=== PATIENT | male | born 1955 | race Caucasian/White ===

== ENCOUNTER → 2018-11-20 | Outpatient (CLI) | payer OTHER ==
[~2018-11-20] MED LIST: GADOBUTROL 10 ML VIAL IVP ONE
== END ==
LOC: FIMAGING 09:28
PROVIDERS: ATTEND Physician Assistant Medical
DX: E78.5 Hyperlipidemia, unspecified (principal); R41.3 Other amnesia; R63.4 Abnormal weight loss; I63.9 Cerebral infarction, unspecified
CPT/HCPCS: A9585

== ENCOUNTER → 2018-11-27 | Outpatient (CLI) | payer OTHER ==
[~2018-11-27] MED LIST changes: -GADOBUTROL 10 ML VIAL IVP ONE; +IOPAMIDOL (ISOVUE 370) 100 ML BTL IV ONE
== END ==
LOC: FIMAGING 12:12
PROVIDERS: ATTEND Physician Assistant Medical
DX: I65.23 Occlusion and stenosis of bilateral carotid arteries (principal); I67.2 Cerebral atherosclerosis; I70.8 Atherosclerosis of other arteries
CPT/HCPCS: Q9967

== ENCOUNTER → 2019-01-04 | Outpatient (CLI) | payer OTHER | LOC: EMCIMAGING 10:19 | PROVIDERS: ATTEND Surgery | DX: I70.8 Atherosclerosis of other arteries (principal); I70.213 Atherosclerosis of native arteries of extremities with intermittent claudication, bilateral legs; R91.1 Solitary pulmonary nodule ==

== ENCOUNTER 2019-02-02 09:24 | Inpatient (IN) | payer OTHER ==
[2019-02-02] MEDS ORDERED: diphenhydrAMINE 25 MG CAP PO ONE ×2 (09:27→09:57)
[2019-02-02] MEDS ORDERED: ASPIRIN EC 325 MG TAB PO ONE ×2 (09:27→09:58)
[2019-02-02] MEDS ORDERED: NS 1,000 ML IV ONE (09:27)
[2019-02-02] MEDS ORDERED: FAMOTIDINE 20 MG TAB PO ONE (09:27)
[2019-02-02] MEDS ORDERED: DIAZEPAM 5 MG TAB PO ONE (09:27)
[2019-02-02] MEDS ORDERED: LIDOCAINE 1% 300 MG/30 ML SDV ONE (09:54)
[2019-02-02] MEDS ORDERED: MIDAZOLAM 2 MG/2 ML VIAL ONE (09:55)
[2019-02-02] MEDS ORDERED: fentaNYL 100 MCG/2 ML INJ ONE (09:55)
[2019-02-02] MEDS ORDERED: IOPAMIDOL (ISOVUE-370) 150 ML BTL IV ONE (09:55)
[2019-02-02] MEDS ORDERED: FAMOTIDINE 20 MG TAB ONE (09:58)
[2019-02-02] MEDS ORDERED: DIAZEPAM 5 MG TAB ONE (09:59)
[2019-02-02 10:05] LABS: PLATELET COUNT 166 10^3/uL (150-400)
--- NOTE | 2019-02-02 10:08 | PDHPUP ---
History & Physical Update H&P update statement: This history and physical update is based on an assessment of the patient which was completed after admission or registration (within 24 hours), but prior to the surgery/procedure. H&P update: H&P reviewed & patient examined, no change in patient's condition since H&P completed
--- NOTE | 2019-02-02 10:09 | PDPROPOC ---
Sedation Plan of Care Sedation Plan of Care: mental status noted, patient educated of risks, benefits , alternatives, patient can tolerate sedation ASA Classification: ASA 2 Planned drugs: fentanyl, midazolam Mallampati Score: Class 2 Mallampati Reference Image: Patient passed 3-3-2 rule?: Yes
[2019-02-02 10:14] LABS: INR 0.99 (0.83-1.16); PROTIME(PATIENT) 12.7 SEC (12.0-15.0)
[2019-02-02] MEDS ORDERED: CLOPIDOGREL BISULFATE 75 MG TAB ONE (10:14)
[2019-02-02] MEDS ORDERED: CLOPIDOGREL BISULFATE 75 MG TAB PO ONE (10:30)
[2019-02-02] MEDS ORDERED: ONDANSETRON 4 MG/2 ML VIAL IVP PRN (11:27)
[2019-02-02] MEDS ORDERED: ATROPINE SULFATE 1 MG/10 ML SYR IVP PRN (11:27)
[2019-02-02] MEDS ORDERED: NITROGLYCERIN 0.4 MG BTL SL PRN (11:27)
--- NOTE | 2019-02-02 11:34 | CPIP ---
[f rep st] INVASIVE CARDIAC PROCEDURE DATE OF PROCEDURE: 02/02/2019 INDICATIONS FOR PROCEDURE: Positive stress test. History of vascular disease. PROCEDURE: 1. Left groin sheathogram. 2. Bilateral selective coronary angiography. 3. Left heart catheterization with left ventriculogram. HISTORY: Briefly, this is a 63-year-old male with history of severe vascular disease with 100% occlu ded carotid arteries as well as history of left femoral-popliteal bypass. The patient was scheduled for a right femoral-popliteal bypass due to worsening claudication. Had a stress test as an outpatie nt which showed moderate inferior defect. Given these findings, the patient consented for left heart catheterization. DESCRIPTION OF PROCEDURE: After informed consent, the patient was brought to [facility] where left groin wa s prepped and draped in a sterile fashion. Using lidocaine, a short 6-Turkmen sheath in the left comm on artery verified angiographically. Through the 6-Turkmen sheath a JL4 catheter was advanced. Engag ement of the left coronary artery showed immediate damping of the catheter with ventricularization. There appeared to be a beak-like stenosis high-grade of the distal left main going to the LAD. There was a ramus intermedius that was coming off which was thin. The left circumflex artery had what marialuisa eared to be high-grade ostial disease as well with a . There was a marginal 1 artery comin g off the midbody with a tubular 70% stenosis proximally. This appeared to be a left dominant circul ation. The LPDA appeared to be a thin vessel, but patent distally. The LAD was a long vessel which wrapped around the apex. The LAD had 20% to 30% disease in its midportion. After the image was obta ined, the JL4 catheter was removed. The JR4 catheter was advanced to the right coronary artery which revealed a nondominant, diffusely diseased right coronary artery. The pigtail catheter was then adv anced to left ventricle. EDP was 10 mmHg. Left ventriculogram was taken in the SIMON projection showe d an EF of 65% with LVH with no wall motion abnormalities. No pullback gradient between the LV and a kike. The pigtail catheter removed with an 0.035 wire. The left groin closed with manual pressure. The patient tolerated the procedure well. There were no complications. IMPRESSION: 1. Triple-vessel disease equivalent with distal left main disease. 2. Severe disease of a nondominant right coronary artery. 3. Normal ejection fraction. PLAN: Given the patient's left main disease, the patient should be considered for CABG. We will con jose Mcgregor from CT Surgery today and proceed with admitting the patient on a heparin infusion after 3 hours of bed rest. /[id number]/MODL
[2019-02-02] MEDS ORDERED: HEPARIN 25,000 UNIT in D5W 500 ML IV SCH ×2 (14:30→15:01)
[2019-02-02] MEDS ORDERED: HEPARIN/DEXTROSE 500 ML IV SCH (15:00)
[2019-02-02] MEDS ORDERED: HEPARIN 10,000 UNIT/10 ML MDV (1,000 UNIT/ML) IVP PRN (15:04)
[2019-02-02] MEDS: HEPARIN/DEXTROSE 500 ML IV SCH (15:22)
--- NOTE | 2019-02-02 15:29 | PDCONSULT ---
Teletype Telegrapher Note: Pt seen and examined. Cardiac cath reviewed personally. Pt with severe PAD, severe LM coronary stenosis, CVD with bilateral ICA occlusion, bilateral vertebral disease and LSCA stenosis. Will need CABG, however would be relatively high risk for stroke and other complications. Will need to hold plavix for 5 days before surgery. Continue heparin. Patient will be seen by Dr. Galvan on Tuesday for CABG. Discussed with pt and .
--- NOTE | 2019-02-02 15:50 | ASMTCMCOM ---
CM Note CM Note Notes: Reviewed chart, pt admitted to hospital for a cardiac procedure following a positive stress test. Procedure reveals cardiovascular disease which may warrant a CABG, consult ordered. Pt lives at home with his and is self employed. DC Plan: TBD Date Signed: 02/02/2019 03:49 PM Electronically Signed By:Nayla Rodríguez RN
--- NOTE | 2019-02-02 16:34 | PDMN ---
Medical Necessity Medical necessity: [facility] S390 CABG ( pend) - pt with + stress test, cardiac cath revealed triple vessel disease PT is high risk for stroke and other complications- Plavix will need to be held for 5 days prior to sgy. sgy pend.
[2019-02-02] MEDS: ATORVASTATIN CALCIUM 40 MG TAB PO SCH (20:15)
--- NOTE | 2019-02-03 07:54 | PDCARPN ---
Cardiology Progress Note Chief Complaint: Patient doing well this morning. Assessment/Plan: Assessment: Patient is a 64 y/o male with history of HTN, HLP, PAD (right leg with claudication and pending need for surgical intervention), CVA (Sep 2018), but no prior diagnosis of CAD, with angiography yesterday after abnormal stress testing with inferior wall reversible defect. Normal LVEF was noted (66%). This testing was performed as "pre op" for PVD to right lower extremity. Severe , multivessel CAD was noted (with LM involvement). Patient denies chest pains or pressure. No PND or orthopnea. Previous history of both alcohol and tobacco abuse. CT surgery assistant controller did speak with the patient, and given a lack of symptoms, plans for potential CABG early next week. Plan: (1) ASA therapy to continue given the severe CAD and PVD history (2) Zestoretic to continue for HTN control assistance (3) Would maintain the patient on heparin drip over the weekend (4) Continued cessation of both tobacco and ETOH use Subjective: No cardiovascular complaints Objective: Vital Signs (8 Hrs) Temp Pulse Resp BP Pulse Ox 02/03/19 07:50 36.6 C 59 L 14 136/62 H 100 02/03/19 04:00 36.6 C 64 18 158/69 H 99 Intake/Output (24 Hrs) 02/02/19 02/03/19 02/04/19 05:59 05:59 05:59 Intake Total 1076.8 Output Total 1350 Balance -273.2 Intake: Oral (ml) 550 IV Intake (ml) 450 IV Infused (ml) 76.8 Heparin 25,000 unit In 76.8 D5w 500 ml @ As Directed IV CONT PANTERA Rx#: [id number] Output: Urine (ml) 1350 Urinal 1350 Other: Weight 80.1 kg Number of Voids Urinal 1 Result Diagrams: 02/02/19 09:40 02/02/19 09:40 EKG: normal sinus rhythm Telemetry: normal sinus rhythm - Physical Exam Constitutional: WDWN, healthy appearing, no apparent distress Eyes: PERRL, EOMI Ears, Nose, Mouth, Throat: moist mucous membranes Cardiovascular: regular rate and rhythm, no murmurs, no rubs, no gallops, No jugular vein distention Peripheral Pulses: 1+: dorsalis-pedis (R), dorsalis-pedis (L) Respiratory: clear to auscultate bilat, no crackles, no wheezes Gastrointestinal: normoactive bowel sounds Skin: no rashes, no edema Musculoskeletal: no muscular tenderness Neurologic: AAOx3, CN II-XII grossly intact Psychiatric: cooperative, interactive, following commands ICD10 Worksheet Patient Problems: Problems Problem Status Onset Coronary artery disease Acute Hyperlipidemia Acute Hypertension Acute Peripheral vascular disease with claudication Acute - ICD10 Problem Qualifiers (1) Coronary artery disease Qualifiers: Coronary Disease-Associated Artery/Lesion type: [place] artery [place] vs. transplanted heart: [place] heart Associated angina: without angina Qualified Code(s): I25.10 - Atherosclerotic heart disease of [place] coronary artery without angina pectoris (2) Hypertension Qualifiers: Hypertension type: essential hypertension Qualified Code(s): I10 - Essential (primary) hypertension (3) Hyperlipidemia Qualifiers: Hyperlipidemia type: mixed hyperlipidemia Qualified Code(s): E78.2 - Mixed hyperlipidemia (4) Peripheral vascular disease with claudication
[2019-02-03] MEDS: LISINOPRIL/HCTZ 20/12.5MG 1 EA TAB PO SCH (09:44)
[2019-02-03] MEDS: ASPIRIN 81 MG CHEWABLE TAB PO SCH (09:44)
[2019-02-03] MEDS: HEPARIN/DEXTROSE 500 ML IV SCH (14:55)
[2019-02-03] MEDS: ATORVASTATIN CALCIUM 40 MG TAB PO SCH (19:44)
--- NOTE | 2019-02-04 08:49 | PDCARPN ---
Cardiology Progress Note Chief Complaint: No cardiovascular complaints Assessment/Plan: Assessment: 02-04-19 Patient without events overnight. Working to get the patient literature/video on CABG procedure. No chest pains or pressure. No PND or orthopnea. Yesterday , family/friends came by for Birthday (patient's). Ongoing heparin drip. Ongoing cessation of tobacco has been tolerated. No changes to medications. In house CT surgery to see patient in the morning and discuss details of procedure and timing. 02-03-19 Patient is a 64 y/o male with history of HTN, HLP, PAD (right leg with claudication and pending need for surgical intervention), CVA (Sep 2018), but no prior diagnosis of CAD, with angiography yesterday after abnormal stress testing with inferior wall reversible defect. Normal LVEF was noted (66%). This testing was performed as "pre op" for PVD to right lower extremity. Severe , multivessel CAD was noted (with LM involvement). Patient denies chest pains or pressure. No PND or orthopnea. Previous history of both alcohol and tobacco abuse. CT surgery management professionals did speak with the patient, and given a lack of symptoms, plans for potential CABG early next week. Plan: (1) ASA therapy to continue given the severe CAD and PVD history (2) Zestoretic to continue for HTN control assistance (3) Would maintain the patient on heparin drip over the weekend (4) Continued cessation of both tobacco and ETOH use Subjective: No cardiovascular complaints. Objective: Vital Signs (8 Hrs) Temp Pulse Resp BP Pulse Ox 02/04/19 07:56 36.8 C 64 14 103/63 95 02/04/19 04:00 36.7 C 51 L 17 111/45 L 96 Intake/Output (24 Hrs) 02/03/19 02/04/19 02/05/19 05:59 05:59 05:59 Intake Total 1076.8 633 Output Total 1350 600 Balance -273.2 33 Intake: Oral (ml) 550 100 IV Intake (ml) 450 IV Infused (ml) 76.8 533 Heparin 25,000 unit In 76.8 533 D5w 500 ml @ As Directed IV CONT PANTERA Rx#: [id number] Output: Urine (ml) 1350 600 Urinal 1350 600 Other: Weight 80.1 kg Number of Voids Toilet 3 Urinal 1 1 Number of Stools Urinal 1 Result Diagrams: 02/04/19 03:10 02/02/19 09:40 Telemetry: normal sinus rhythm - Physical Exam Constitutional: WDWN, healthy appearing, no apparent distress Eyes: PERRL, EOMI Ears, Nose, Mouth, Throat: moist mucous membranes Cardiovascular: regular rate and rhythm, pulses symmetric bilat, No jugular vein distention Peripheral Pulses: 2+: dorsalis-pedis (R), dorsalis-pedis (L) Respiratory: clear to auscultate bilat, no crackles, no wheezes Gastrointestinal: normoactive bowel sounds Skin: no rashes, no edema Musculoskeletal: no muscular tenderness Neurologic: AAOx3, CN II-XII grossly intact Psychiatric: cooperative, interactive, following commands ICD10 Worksheet Patient Problems: Problems Problem Status Onset Coronary artery disease Acute Hyperlipidemia Acute Hypertension Acute Peripheral vascular disease with claudication Acute - ICD10 Problem Qualifiers (1) Coronary artery disease Qualifiers: Coronary Disease-Associated Artery/Lesion type: [place] artery [place] vs. transplanted heart: [place] heart Associated angina: without angina Qualified Code(s): I25.10 - Atherosclerotic heart disease of [place] coronary artery without angina pectoris (2) Hypertension Qualifiers: Hypertension type: essential hypertension Qualified Code(s): I10 - Essential (primary) hypertension (3) Hyperlipidemia Qualifiers: Hyperlipidemia type: mixed hyperlipidemia Qualified Code(s): E78.2 - Mixed hyperlipidemia (4) Peripheral vascular disease with claudication
[2019-02-04] MEDS ORDERED: ACETAMINOPHEN 325 MG TAB PO PRN (10:39)
[2019-02-04] MEDS: LISINOPRIL/HCTZ 20/12.5MG 1 EA TAB PO SCH (10:42)
[2019-02-04] MEDS: ASPIRIN 81 MG CHEWABLE TAB PO SCH (10:42)
[2019-02-04] MEDS: ATORVASTATIN CALCIUM 40 MG TAB PO SCH (19:55)
[2019-02-05] MEDS: ASPIRIN 81 MG CHEWABLE TAB PO SCH (08:35)
[2019-02-05] MEDS: LISINOPRIL/HCTZ 20/12.5MG 1 EA TAB PO SCH (08:35)
--- NOTE | 2019-02-05 09:15 | ASMTCMCOM ---
CM Note CM Note Notes: CM reviewed chart. Pt is consulted to have an open heart. Needs are TBD at this time. CM to follow up after procedure. CM to follow. Plan: TBD Date Signed: 02/05/2019 09:14 AM Electronically Signed By:KEVIN Lucas
--- NOTE | 2019-02-05 14:07 | PDCARPN ---
Cardiology Progress Note Chief Complaint: Patient doing well today. No active cardiovascular complaints Assessment/Plan: Assessment: 02-05-19 No cardiovascular complaints. No chest pains or pressure. No PND or orthopnea. Patient up in chair this afternoon. CT surgery consult is pending. Patient with pending need for vascular surgery as well to right lower extremity. Ongoing heparin drip. No pathologic arrhythmias were appreciated on tele. 02-04-19 Patient without events overnight. Working to get the patient literature/video on CABG procedure. No chest pains or pressure. No PND or orthopnea. Yesterday , family/friends came by for Birthday (patient's). Ongoing heparin drip. Ongoing cessation of tobacco has been tolerated. No changes to medications. In house CT surgery to see patient in the morning and discuss details of procedure and timing. 02-03-19 Patient is a 64 y/o male with history of HTN, HLP, PAD (right leg with claudication and pending need for surgical intervention), CVA (Sep 2018), but no prior diagnosis of CAD, with angiography yesterday after abnormal stress testing with inferior wall reversible defect. Normal LVEF was noted (66%). This testing was performed as "pre op" for PVD to right lower extremity. Severe , multivessel CAD was noted (with LM involvement). Patient denies chest pains or pressure. No PND or orthopnea. Previous history of both alcohol and tobacco abuse. CT surgery assembly instructions writer did speak with the patient, and given a lack of symptoms, plans for potential CABG early next week. Plan: (1) CT surgery consult (2) ASA therapy to continue given the severe CAD and PVD history (3) Zestoretic to continue for HTN control assistance (4) Would maintain the patient on heparin drip over the weekend (5) Continued cessation of both tobacco and ETOH use Subjective: No cardiovascular complaints Objective: Vital Signs (8 Hrs) Temp Pulse Resp BP Pulse Ox 02/05/19 11:18 37.1 C 55 L 14 109/57 L 98 02/05/19 08:00 36.7 C 62 14 145/56 H 97 Intake/Output (24 Hrs) 02/04/19 02/05/19 02/06/19 05:59 05:59 05:59 Intake Total 633 1582 Output Total 600 652 Balance 33 930 Intake: Oral (ml) 100 1105 IV Infused (ml) 533 477 Heparin 25,000 unit In 533 477 D5w 500 ml @ As Directed IV CONT PANTERA Rx#: [id number] Output: Urine (ml) 600 652 Toilet 2 Urinal 600 650 Other: Number of Voids Toilet 3 3 Urinal 1 Number of Stools Toilet 1 Urinal 1 Result Diagrams: 02/04/19 03:10 02/02/19 09:40 Telemetry: sinus rhythm - Physical Exam Constitutional: WDWN, healthy appearing, no apparent distress Eyes: PERRL, EOMI Ears, Nose, Mouth, Throat: moist mucous membranes Cardiovascular: regular rate and rhythm, no murmurs, no rubs, no gallops Peripheral Pulses: 2+: dorsalis-pedis (R), dorsalis-pedis (L) Respiratory: clear to auscultate bilat, no crackles, no wheezes Gastrointestinal: normoactive bowel sounds Skin: no rashes, no edema Musculoskeletal: no muscular tenderness Neurologic: AAOx3, CN II-XII grossly intact Psychiatric: cooperative, interactive, following commands ICD10 Worksheet Patient Problems: Problems Problem Status Onset Coronary artery disease Acute Hyperlipidemia Acute Hypertension Acute Peripheral vascular disease with claudication Acute - ICD10 Problem Qualifiers (1) Coronary artery disease Qualifiers: Coronary Disease-Associated Artery/Lesion type: [place] artery [place] vs. transplanted heart: [place] heart Associated angina: without angina Qualified Code(s): I25.10 - Atherosclerotic heart disease of [place] coronary artery without angina pectoris (2) Hypertension Qualifiers: Hypertension type: essential hypertension Qualified Code(s): I10 - Essential (primary) hypertension (3) Hyperlipidemia Qualifiers: Hyperlipidemia type: mixed hyperlipidemia Qualified Code(s): E78.2 - Mixed hyperlipidemia (4) Peripheral vascular disease with claudication
[2019-02-05] MEDS: HEPARIN/DEXTROSE 500 ML IV SCH (14:36)
[2019-02-05] MEDS: ATORVASTATIN CALCIUM 40 MG TAB PO SCH (20:32)
--- NOTE | 2019-02-06 00:15 | GCON ---
[f rep st] CONSULTATION DATE OF CONSULTATION: 02/05/2019 REASON FOR CONSULTATION: Left main coronary artery disease. HISTORY: The patient is a 64-year-old gentleman who is admitted following cardiac catheterization wh ich was being performed during his workup for right lower extremity bypass surgery. The patient is a long-time smoker. He has known bilateral carotid occlusion. He has had an iliofemoral bypass on th e left leg and is now being worked up for bypass on the right leg for lifestyle limiting claudication . Cardiac catheterization revealed critical left main disease with a left-sided dominant system. I am asked to see him for consideration of coronary bypass surgery. The patient is currently on hepari n. PHYSICAL EXAMINATION: GENERAL: He is a thin male, awake, alert, and in good spirits. CARDIAC: Exa m reveals normal S1 and S2. LUNGS: Clear to auscultation. ABDOMEN: Soft and nontender. He has a well-healed left lower quadrant vertical incision. EXTREMITIES: There is no evidence of tissue loss on either lower extremity. Review of his coronary angiography revealed critical left main disease with reasonable targets in the circumflex, LAD, and ramus vessels. IMPRESSION: Critical left main coronary artery disease. There does appear to be a suitable conduit in the left leg. He will undergo vein mapping to confirm this. He also has known left subclavian st enosis. I anticipate revascularization on Tuesday of this week (in 48 hours). At that time, he wi ll have revascularization likely with a free mammary and veins to the circumflex circulation. We dis cussed at length the risks, benefits, and alternatives to surgery. We specifically discussed the ris k of stroke in light of his bilateral carotid disease. The patient is agreeable to proceed and we ar e planning for surgery on Tuesday. Thanks for asking me to see him. /[id number]/MODL
[2019-02-06] MEDS: ASPIRIN 81 MG CHEWABLE TAB PO SCH (09:17)
[2019-02-06] MEDS: LISINOPRIL/HCTZ 20/12.5MG 1 EA TAB PO SCH (09:17)
--- NOTE | 2019-02-06 09:56 | PDCARPN ---
Cardiology Progress Note Chief Complaint: No cardiovascular issues overnight. Surgery is scheduled for tomorrow (CABG) Assessment/Plan: Assessment: 02-06-19 No cardiovascular complaints. Discussion/consultation with CT surgery yesterday. Patient without chest pains or pressure. No arrhythmias noted. 02-05-19 No cardiovascular complaints. No chest pains or pressure. No PND or orthopnea. Patient up in chair this afternoon. CT surgery consult is pending. Patient with pending need for vascular surgery as well to right lower extremity. Ongoing heparin drip. No pathologic arrhythmias were appreciated on tele. 02-04-19 Patient without events overnight. Working to get the patient literature/video on CABG procedure. No chest pains or pressure. No PND or orthopnea. Yesterday , family/friends came by for Birthday (patient's). Ongoing heparin drip. Ongoing cessation of tobacco has been tolerated. No changes to medications. In house CT surgery to see patient in the morning and discuss details of procedure and timing. 02-03-19 Patient is a 64 y/o male with history of HTN, HLP, PAD (right leg with claudication and pending need for surgical intervention), CVA (Sep 2018), but no prior diagnosis of CAD, with angiography yesterday after abnormal stress testing with inferior wall reversible defect. Normal LVEF was noted (66%). This testing was performed as "pre op" for PVD to right lower extremity. Severe , multivessel CAD was noted (with LM involvement). Patient denies chest pains or pressure. No PND or orthopnea. Previous history of both alcohol and tobacco abuse. CT surgery pest control specialist did speak with the patient, and given a lack of symptoms, plans for potential CABG early next week. Plan: (1) CABG scheduled for tomorrow (2) ASA therapy to continue given the severe CAD and PVD history (3) Zestoretic to continue for HTN control assistance (4) Would maintain the patient on heparin drip until request to hold by CT surgery (5) Continued cessation of both tobacco and ETOH use Subjective: No complaints Objective: Vital Signs (8 Hrs) Temp Pulse Resp BP Pulse Ox 02/06/19 07:20 36.7 C 64 12 106/48 L 96 02/06/19 03:41 36.8 C 63 20 115/57 L 96 Intake/Output (24 Hrs) 02/05/19 02/06/1902/07/19 05:59 05:59 05:59 Intake Total 1582 1500 Output Total 652 Balance 930 1500 Intake: Oral (ml) 1105 1500 IV Infused (ml) 477 Heparin 25,000 unit In 477 D5w 500 ml @ As Directed IV CONT PANTERA Rx#: [id number] Output: Urine (ml) 652 Toilet 2 Urinal 650 Other: Intake Quantity Yes Sufficient Number of Voids Toilet 3 Number of Stools Toilet 1 Result Diagrams: 02/06/19 03:08 02/02/19 09:40 Telemetry: sinus rhythm - Physical Exam Constitutional: WDWN, healthy appearing, no apparent distress Eyes: PERRL, EOMI Ears, Nose, Mouth, Throat: moist mucous membranes Cardiovascular: regular rate and rhythm, no murmurs, no rubs, no gallops Peripheral Pulses: 2+: dorsalis-pedis (R), dorsalis-pedis (L) Respiratory: clear to auscultate bilat, no crackles, no wheezes Gastrointestinal: normoactive bowel sounds Skin: no rashes, no edema Neurologic: AAOx3, CN II-XII grossly intact Psychiatric: cooperative, interactive, following commands ICD10 Worksheet Patient Problems: Problems Problem Status Onset Coronary artery disease Acute Hyperlipidemia Acute Hypertension Acute Peripheral vascular disease with claudication Acute - ICD10 Problem Qualifiers (1) Coronary artery disease Qualifiers: Coronary Disease-Associated Artery/Lesion type: [place] artery [place] vs. transplanted heart: [place] heart Associated angina: without angina Qualified Code(s): I25.10 - Atherosclerotic heart disease of [place] coronary artery without angina pectoris (2) Hypertension Qualifiers: Hypertension type: essential hypertension Qualified Code(s): I10 - Essential (primary) hypertension (3) Hyperlipidemia Qualifiers: Hyperlipidemia type: mixed hyperlipidemia Qualified Code(s): E78.2 - Mixed hyperlipidemia (4) Peripheral vascular disease with claudication
[2019-02-06] MEDS: HEPARIN/DEXTROSE 500 ML IV SCH (13:08)
[2019-02-06] MEDS: MUPIROCIN 2% 22 GM OINT NS SCH (21:00)
[2019-02-06] MEDS ORDERED: CHLORHEXIDINE GLUC HIBICLENS 118 ML BTL TP SCH (21:00)
[2019-02-07] MEDS: MUPIROCIN 2% 22 GM OINT NS SCH ×3 (09:41→21:05)
[2019-02-07] MEDS ORDERED: VERAPAMIL 5 MG, NITROGLYCERIN 2.5 MG, HEPARIN 500 UNIT, SODIUM BICARBONATE 0.2 MEQ in L... MISC ONE (10:00)
[2019-02-07] MEDS ORDERED: MANNITOL 25% 12.5 GM/50 ML VIAL IVP ONE (10:00)
[2019-02-07] MEDS ORDERED: DOBUTamine/DEXTROSE 250 ML IV ONE (10:00)
[2019-02-07] MEDS ORDERED: PHENYLEPHRINE HCL 50 MG in NS 250 ML IV ONE (10:00)
[2019-02-07] MEDS ORDERED: INSULIN REGULAR HUMAN 100 UNIT in NS 100 ML IV ONE (10:00)
[2019-02-07] MEDS ORDERED: ceFAZolin 2 GM/DEXTROSE 100 ML IV ONE (10:00)
[2019-02-07] MEDS ORDERED: NOREPINEPHRINE BITARTRATE 16 MG in NS 250 ML IV ONE (10:00)
[2019-02-07] MEDS ORDERED: PAPAVERINE HCL 240 MG in NS (SYRINGE) 32 ML IV ONE (10:00)
[2019-02-07] MEDS ORDERED: CITRATE DEXTROSE SOLN 500 ML BAG MISC ONE (10:00)
[2019-02-07] MEDS ORDERED: AMINOCAPROIC ACID 5 GM/20 ML VIAL IV ONE (10:00)
[2019-02-07] MEDS ORDERED: niCARdipine/NACL 200 ML IV ONE (10:00)
[2019-02-07] MEDS ORDERED: PAPAVERINE HCL 60 MG, VERAPAMIL 5 MG in SYRINGE 0 ML IV ONE (10:00)
[2019-02-07] MEDS ORDERED: CARDIOPLEGIC SOLUTION 1,052.8 ML PF ONE (10:00)
--- NOTE | 2019-02-07 10:34 | ASMTCMCOM ---
CM Note CM Note Notes: 02/07/2019 Case Management Note Pt requested MDPOA/Living will paperwork. Provided "your right to make healthcare decisions" booklet. Spiritual Care met w/pt and briefly. Notified from [facility] case management that Joanna ken Chavez is available for any post d/c needs. [phone] x [phone]. Pt to have CABG today at noon. Will transfer to ICU post op. Case Management d/c poc: to be determined Case Management to follow. Date Signed: 02/07/2019 10:34 AM Electronically Signed By:Peggy Jauregui RN
[2019-02-07] MEDS ORDERED: PAPAVERINE HCL 60 MG/2 ML SDV ONE (11:17)
[2019-02-07] MEDS ORDERED: AMINOCAPROIC ACID 5 GM/20 ML VIAL ONE ×2 (11:18→11:21)
[2019-02-07] MEDS ORDERED: CALCIUM CHLORIDE 1 GM/10 ML INJ ONE ×2 (11:18→11:21)
[2019-02-07] MEDS ORDERED: MILRINONE/DEXTROSE/100 ML BAG IV ONE (11:18)
[2019-02-07] MEDS ORDERED: PROTAMINE SULFATE 50 MG/5 ML VIAL IVP ONE (11:18)
[2019-02-07] MEDS ORDERED: HEPARIN 10,000 UNIT/10 ML MDV (1,000 UNIT/ML) ONE ×2 (11:19→11:22)
[2019-02-07] MEDS ORDERED: niCARdipine/NACL/200 ML BAG IV ONE (11:19)
[2019-02-07] MEDS ORDERED: NA BICARBONATE 50 MEQ/50 ML VIAL ONE (11:19)
[2019-02-07] MEDS ORDERED: DOPamine/DEXTROSE 400 MG/250 ML BAG IV ONE (11:19)
[2019-02-07] MEDS ORDERED: ADENOSINE 6 MG/2 ML VIAL ONE (11:20)
[2019-02-07] MEDS ORDERED: AMIODARONE HCL 150 MG/3 ML VIAL ONE ×2 (11:20→11:22)
[2019-02-07] MEDS ORDERED: LR 1,000 ML IV ONE (11:20)
[2019-02-07] MEDS ORDERED: NITROGLYCERIN/D5W 50 MG/250 ML BOTTLE IV ONE (11:20)
[2019-02-07] MEDS ORDERED: ceFAZolin 1 GM VIAL ONE (11:20)
[2019-02-07] MEDS ORDERED: LIDOCAINE 2% 100 MG/5 ML SYR ONE (11:21)
[2019-02-07] MEDS ORDERED: ALBUMIN 5% 250 ML BOTTLE IV ONE ×2 (11:21→13:43)
[2019-02-07] MEDS ORDERED: MAGNESIUM SULFATE 1 GM/2 ML VIAL ONE (11:22)
[2019-02-07] MEDS ORDERED: CITRATE DEXTROSE SOLN 500 ML BAG ONE (11:22)
[2019-02-07] MEDS ORDERED: methylPREDNISolone SOD SUCC 1 GM/8 ML VIAL ONE (11:23)
[2019-02-07] MEDS ORDERED: MIDAZOLAM 2 MG/2 ML VIAL IVP ONE (11:43)
--- NOTE | 2019-02-07 11:54 | PDANEPAE ---
ANE History of Present Illness here for CABG ANE Past Medical History - Cardiovascular History Hx Hypertension: Yes Hx Arrhythmias: No Hx Chest Pain: No Hx Coronary Artery / Peripheral Vascular Disease: Yes Hx CHF / Valvular Disease: No Hx Palpitations: No - Pulmonary History Hx COPD: No Hx Asthma/Reactive Airway Disease: No Hx Recent Upper Respiratory Infection: No Hx Oxygen in Use at Home: No Hx Sleep Apnea: No Sleep Apnea Screening Result - Last Documented: Positive - Endocrine History Hx Diabetes: No Hypothyroid: No Hyperthyroid: No - Renal History Hx Renal Disorders: No - Liver History Hx Hepatic Disorders: No - Neurological & Psychiatric Hx Hx Neurological and Psychiatric Disorders: Yes Neurological / Psychiatric History Comment: s/p TIA Sep 2018 - Chronic Pain History Chronic Pain: No ANE Review of Systems Review of systems is: negative Review of Systems: - Exercise capacity Exercise capacity: <4 METS ANE Patient History - Allergies Allergies/Adverse Reactions: morphine Allergy (Verified 02/02/19 08:13) Vomiting - Home Medications Home medications: home medication list seen and reviewed Home Medications: Aspirin [Aspirin 81mg (*)] 81 mg PO DAILY 02/02/19 [Last Taken Unknown] Atorvastatin Calcium [Lipitor 40 mg (*)] 40 mg PO HS 02/02/19 [Last Taken Unknown] Clopidogrel Bisulfate [Plavix (*)] 75 mg PO DAILY 02/02/19 [Last Taken Unknown] Lisinopril/Hctz 20/12.5MG [Zestoretic/Prinzide 20/12.5MG (*)] 1 ea PO DAILY 12/19 [Last Taken Unknown] - NPO status NPO Status: no food or drink >8 hours NPO Since - Liquids (Date): 02/07/19 NPO Since - Liquids (Time): 00:00 NPO Since - Solids (Date): 02/06/19 NPO Since - Solids (Time): 19:00 - Smoking Hx Smoking Status: Former smoker ANE Labs/Vital Signs - Labs Result Diagrams: 02/07/19 03:18 02/07/19 03:18 - Vital Signs Vital Signs: reviewed preoperatively; see RN documention for details Blood Pressure: 121/58 Heart Rate: 61 Respiratory Rate: 12 O2 Sat (%): 96 Height: 185 cm Weight: 79.3 kg ANE Physical Exam - Airway Neck exam: FROM Mallampati Score: Class 1 Mouth exam: normal dental/mouth exam - Pulmonary Pulmonary: no respiratory distress - Cardiovascular Cardiovascular: regular rate and rhythym - ASA Status ASA Status: IV ANE Anesthesia Plan Anesthesia Plan: general endotracheal anesthesia (Risks discussed including increased risk of stroke given carotid disease ) Lines/Monitors: arterial line, central line, MIRELLA
[2019-02-07] MEDS ORDERED: PROPOFOL/EMULSION 500 MG/50 ML BOTTLE IV ONE (11:56)
[2019-02-07] MEDS ORDERED: fentaNYL 250 MCG/5 ML INJ ONE ×2 (12:01→13:07)
[2019-02-07] MEDS ORDERED: DEXMEDETOMIDINE HCL 400 MCG in NS 100 ML IV SCH (15:00)
[2019-02-07] MEDS ORDERED: fentaNYL 100 MCG/2 ML INJ ONE (15:14)
[2019-02-07] MEDS ORDERED: FIBRINOGEN/THROMBIN(HUMAN) 9.5 CM X 4.8 CM PATCH (TACHOSIL) TP ONE (15:25)
--- NOTE | 2019-02-07 16:36 | POSTOPPROG ---
Post Op Note Date of Operation: 02/07/19 Surgeon: Krishna Elizondo Assistant: Navjot Anesthesiologist: Avel Anesthesia: GET(General Endotracheal) Pre-op Diagnosis: severe CAD/LM, PVD, hx of stroke, left subclavian stenosis Post-op Diagnosis: same Procedure: CABGx2 free SALOMON-LAD, SVG-OM2 Findings: see op report Inf/Abcess present in the surg proc area at time of surgery?: No Depth: Organ Space EBL: 500-1000 Complications: none Drains: Other (3 chest tubes y'd; Vwires) Specimen(s): none
[2019-02-07] MEDS ORDERED: CEPACOL LOZENGE PO PRN (16:38)
[2019-02-07] MEDS ORDERED: BISACODYL 10 MG SUPP PR PRN (16:38)
[2019-02-07] MEDS ORDERED: MEPERIDINE 25 MG/0.5 ML AMP IVP PRN (16:38)
[2019-02-07] MEDS ORDERED: POTASSIUM Cl (KCl) 50 ML IV PRN (16:38)
[2019-02-07] MEDS ORDERED: D50W 25 GM/50 ML SYR IVP PRN (16:38)
[2019-02-07] MEDS ORDERED: PANTOPRAZOLE SODIUM 40 MG VIAL IVP ONE (16:38)
[2019-02-07] MEDS ORDERED: MAGNESIUM HYDROXIDE 30 ML UDCUP PO PRN (16:38)
[2019-02-07] MEDS ORDERED: ONDANSETRON DISINTEGRATING 4 MG TAB PO PRN (16:38)
[2019-02-07] MEDS ORDERED: ACETAMINOPHEN 325 MG TAB PO PRN (16:38)
[2019-02-07] MEDS ORDERED: POLYETHYLENE GLYCOL 3350 17 GM PKT PO PRN (16:38)
[2019-02-07] MEDS ORDERED: SODIUM CL NASAL 45 ML BTL EACHNARE PRN (16:38)
[2019-02-07] MEDS ORDERED: METOCLOPRAMIDE 10 MG/2 ML VIAL IVP PRN (16:38)
[2019-02-07] MEDS ORDERED: ONDANSETRON 4 MG/2 ML VIAL IVP PRN (16:38)
[2019-02-07] MEDS ORDERED: ACETAMINOPHEN 650 MG SUPP PR PRN (16:38)
[2019-02-07] MEDS ORDERED: NS 1,000 ML IV SCH (16:45)
[2019-02-07] MEDS ORDERED: NOREPINEPHRINE BITARTRATE 16 MG in NS 250 ML IV SCH (17:00)
[2019-02-07] MEDS ORDERED: INSULIN REGULAR HUMAN 100 UNIT in NS 100 ML IV SCH (17:00)
--- NOTE | 2019-02-07 17:11 | GOP ---
[f rep st] OPERATIVE REPORT DATE OF OPERATION: 02/07/2019 SURGEON: Krishna Elizondo MD [facility] TECHNICIAN: Lainey Villanueva PREOPERATIVE DIAGNOSIS: 1. Critical left main coronary artery disease. 2. Extensive peripheral vasculopathy. 3. Previous cerebrovascular accident. POSTOPERATIVE DIAGNOSIS: 1. Critical left main coronary artery disease. 2. Extensive peripheral vasculopathy. 3. Previous cerebrovascular accident. PROCEDURE PERFORMED: Double coronary artery bypass grafting, FINDINGS: The pericardial space was free. The vein in the upper leg on the left side was good. The mammary was also a good quality vessel. The distal targets were suitable, though, with a 1.5 mm dis victoriano LAD and a 2 mm circumflex marginal. The ramus, which we had discussed grafting, turned out to be intramyocardial and small, and so this was not grafted. This was not grafted because of the size of the vessel, difficult to access, and sensitivity toward keeping the operation as brief as possible t o protect his brain. INDICATIONS: This 64-year-old gentleman has extensive peripheral vasculopathy. He has bilateral occ luded carotid arteries. He has a previous iliofemoral bypass on the left leg. He was anticipating a fem-popliteal bypass on the right leg for lifestyle-limiting claudication when his workup revealed c ritical left main disease. Extensive discussion with the cardiology team and surgical team led to th e conclusion that this was not suitable for stent placement and the patient was counseled that surgic al revascularization would be the best option; however, his stroke risk was significantly elevated du e to his cerebrovascular disease. The patient ultimately desired to proceed with surgical revascular ization. It is also noted there is a proximal left subclavian stenosis. DESCRIPTION OF PROCEDURE: Patient was taken operating room, placed on the operating table in supine position. After induction of general anesthesia and single-lumen endotracheal tube intubation, the p atient was prepped and draped sterilely. A standard median sternotomy was performed and the left int ernal mammary artery was taken down with electrocautery and hemoclips while the saphenous vein was posadas rvested from the upper portion of the left leg using a minimally invasive endoscopic technique. The mammary was then divided proximally and distally and taken as a free graft. Next, the patient was ca nnulated with a Sarns 8.0 soft flow aortic cannula, as well as a dual stage venous right atrial cannu la. Cardiopulmonary bypass was instituted. The distal vessels were inspected and marked for graftin g. The findings and descriptions are above. Next, the cross-clamp was applied, and the heart was arrested with 1 L of [place] solution. The mar ginal branch of the circumflex was opened. It was anastomosed end-to-side to the vein graft using ru nning 7-0 Prolene. Next, the LAD was opened in its 3rd portion and anastomosed end-to-side to the left internal mammary artery using running 7-0 Prolene. The cross-clamp was then removed, and a partial occlusion clamp wa s placed. The vein graft was anastomosed end-to-side to the ascending aorta using 6-0 Prolene to a 4 .4 mm punch aortotomy. The mammary artery was then sewn end-to-side to the proximal portion of the v ein graft using running 6-0 Prolene. These were then de-aired and allowed to flow freely. Left, rig ht, and mediastinal chest tubes were placed, and the patient was from cardiopulmonary bypas s without difficulty. It should be noted that generally speaking, cerebral oxygenation was quite goo d throughout the case. Perfusion pressure was elevated during the entire case, as by design, in orde r to maximize cerebral perfusion. We also carefully avoided significant anemia. Once off bypass, th e protamine was administered, and the patient was decannulated. All cannulation sites were doubly se cured with Prolene suture; and after hemostasis had been achieved, the heart was then covered with pe ricardium and fat, and the chest was closed with #6 stainless steel wires. Subcutaneous tissue and s kin were closed with running Vicryl suture. The patient tolerated the procedure well. SUMMARY OF GRAFTS: 1. Left internal mammary artery free graft from the thompson of the proximal vein anastomosis to the lef t anterior descending artery. 2. Saphenous vein graft from aorta to the obtuse marginal. 3. Endoscopic vein harvest from the left thigh. /[id number]/MODL
--- NOTE | 2019-02-07 17:21 | POSTANESTH ---
Post Anesthetic Evaluation Cardiovascular Status: Normal, Stable Respiratory Status: Normal, Stable, Requires Airway Assist (intubated and sedated) Level of Consciousness/Mental Status: Unconscious Pain Control: Adequate, Prn Tx Ordered Nausea/Vomiting Control: Adequate, Prn Tx Ordered Complications Possibly Related to Anesthesia: None Noted
--- NOTE | 2019-02-07 18:33 | CPEKG ---
Test Reason : OPEN Blood Pressure : / mmHG Vent. Rate : 078 BPM Atrial Rate : 078 BPM P-R Int : 101 ms QRS Dur : 084 ms QT Int : 403 ms P-R-T Axes : 052 010 056 degrees QTc Int : 460 ms Sinus rhythm Short DC interval Low voltage, extremity leads Abnormal R-wave progression, early transition Confirmed by Aleksander Sargent ([id number]) on 02/07/2019 6:32:50 PM Referred By: Krishna Elizondo Confirmed By:Aleksander Sargent
[2019-02-07] MEDS ORDERED: niCARdipine/NACL 200 ML IV SCH (19:00)
[2019-02-07] MEDS: ALBUMIN 5% 250 ML IV PRN ×2 (19:29→19:58)
--- NOTE | 2019-02-07 20:30 | CPEKG ---
Test Reason : OPEN Blood Pressure : / mmHG Vent. Rate : 054 BPM Atrial Rate : 054 BPM P-R Int : 139 ms QRS Dur : 088 ms QT Int : 418 ms P-R-T Axes : 070 003 050 degrees QTc Int : 397 ms Sinus rhythm Low voltage, extremity leads Abnormal R-wave progression, early transition Confirmed by Jac Morales ([id number]) on 02/07/2019 8:30:17 PM Referred By: Aleksadner Sargent Confirmed By:Jac Morales
[2019-02-07] MEDS: ceFAZolin 2 GM/DEXTROSE 100 ML IV SCH (21:04)
[2019-02-07] MEDS: fentaNYL 100 MCG/2 ML INJ IVP PRN (22:28)
[2019-02-07] MEDS: HYDROCODONE/APAP 5/325 TAB PO PRN (23:10)
[2019-02-08] MEDS: fentaNYL 100 MCG/2 ML INJ IVP PRN ×5 (00:11→13:50)
[2019-02-08] MEDS: HYDROCODONE/APAP 5/325 TAB PO PRN ×4 (03:38→16:47)
[2019-02-08 05:10] LABS: PLATELET COUNT 131 10^3/uL (150-400)
[2019-02-08] MEDS: ceFAZolin 2 GM/DEXTROSE 100 ML IV SCH ×3 (05:12→21:44)
--- NOTE | 2019-02-08 07:03 | SOAPPROG ---
SOAP Progress Note Assessment/Plan: POD 1 s/p CABGx2 (free SALOMON-LAD, SVG-OM2) Severe coronary artery disease including LM s/p CABGx -secondary prevention with BB/ASA/statin when appropriate -normal LVEF pre-op @ 66% History of CVA 09/19 -bilateral carotid, vertebral artery disease, avoid hypotension -plan to restart plavix when chest tubes out for dual antiplt therapy Severe right leg PVD w claudication -planned elective intervention w fem-pop bypass per Dr. Leigh after discharge -history of left iliofemoral bypass 2003 -longstanding history of tobacco use Acute expected blood loss anemia -stable s/p 1u PRBC, 1 plt Chronic renal insufficiency, baseline 1.3-1.6 -stable, monitor Acute pulmonary insufficiency -extubation per Dr. Johns -lifelong smoker DVT ppx -SCDs, early ambulation Dispo: Wean Levo, keep MAP >65 Keep [place] until off pressors Transfuse 1u PRBC Diet per [employer] Right/mediastinal chest tubes y'd; left to separate canister Wrap and cap V Wires Stay in ICU Subjective: Fatigued Objective: GEN: NAD, in chair HEENT: NCAT, MMM Cardiac: NSR, no m/r/g, no edema Resp: CTAB, no wheezes CT: light red 130/450 Vital Signs Temp Pulse Resp BP Pulse Ox 37.0 C 79 14 112/52 L 96 02/08/19 04:00 02/08/19 06:00 02/08/19 06:00 02/08/19 06:00 02/08/19 06:00 Laboratory Results 02/08/19 04:35 02/08/19 04:35 02/07/19 02/08/19 02/09/19 05:59 05:59 05:59 Intake Total 350 2925 Output Total 2470 Balance 350 455 PT 12.7 SEC (12.0-15.0) 02/02/19 09:40 INR 0.99 (0.83-1.16) 02/02/19 09:40 CXR - large gastric bubble, mild congestion ICD10 Worksheet Patient Problems: Problems Problem Status Onset Acute blood loss anemia Acute Coronary artery disease Acute Hyperlipidemia Acute Hypertension Acute Peripheral vascular disease with claudication Acute S/P CABG x 2 Acute
[2019-02-08] MEDS: MUPIROCIN 2% 22 GM OINT NS SCH ×2 (08:56→19:58)
[2019-02-08] MEDS: traMADol 50 MG TAB PO PRN (15:01)
--- NOTE | 2019-02-08 16:36 | ASMTCMCOM ---
CM Note CM Note Notes: Patient had a coronary artery bypass graft x2 today. PT/OT ordered. Will await therapies recommendations for d/c planning. CM following. Date Signed: 02/08/2019 04:34 PM Electronically Signed By:Dorothy Ramírez LCSW
[2019-02-08] MEDS: ASPIRIN 81 MG CHEWABLE TAB PO SCH (16:37)
[2019-02-08] MEDS: PANTOPRAZOLE SODIUM 40 MG TAB PO SCH (16:37)
[2019-02-08] MEDS ORDERED: ASPIRIN 81 MG CHEWABLE TAB TUBE PRN (16:38)
[2019-02-08] MEDS: SENNOSIDES/DOCUSATE SODIUM TAB PO SCH (19:56)
[2019-02-08] MEDS: oxyCODONE IR 5 MG TAB PO PRN (19:57)
[2019-02-09] MEDS: ceFAZolin 2 GM/DEXTROSE 100 ML IV SCH (05:15)
[2019-02-09 05:18] LABS: PLATELET COUNT 129 10^3/uL (150-400)
--- NOTE | 2019-02-09 07:34 | SOAPPROG ---
SOAP Progress Note Assessment/Plan: Assessment: POD#2 CABGx2 (free SALOMON-LAD, SVG-OM2), EVH LLE Severe coronary artery disease w critical LM stenosis and preserved LV systolic fx - Incompletely revascularized w CABG as RI intramyocardial and not amenable to grafting where visible - Secondary prevention with ASA. BB as allowed by BP. Statin when eating well. History of CVA 09/19 - Significant CVD. - Early postop BP optimized with pressor support. Permissive BPs for now. Intro of BB next 1-2 days as tolerated. - Antithrombotic prophylaxis w plavix to resume once chest tubes out Severe right leg PVD w claudication @ 2 blocks - Anticipating fem-pop bypass when recovered from cardiac surgery Acute expected blood loss anemia with acute on chronic borderline thrombocytopenia - Stable s/p 2u PRBC and 1u plt - VTE prophylaxis with SCDs, eventual DAPT CKD, stage 2-3, baseline Cr 1.3-1.6 - Stable. Monitor. Acute postop pulmonary insufficiency - Lifelong smoker quitting after CVA. - Extubated evening of surgery. Stable suppl O2 needs. Plan: NS @ 100 ml/h x 1L Jason BMP at 4p Remove TCPWs and rt pleural/ant mediastinal drains Wean O2 [employer] activity as tolerated Dispo - Anticipate home without services in 2-3 days 02/09/19 07:34 Subjective: Doing ok. Hard to take a deep breathe, easily winded w activity. Min appetite. Objective: Vital Signs Temp Pulse Resp BP Pulse Ox 37.1 C 116 H 18 134/68 H 90 L 02/09/19 04:00 02/09/19 04:00 02/09/19 04:00 02/09/19 04:00 02/09/19 04:00 Laboratory Results 02/09/19 05:00 02/09/19 05:00 02/08/19 02/09/19 02/10/19 05:59 05:59 05:59 Intake Total 2925 1225 150 Output Total 2470 1445 200 Balance 455 -220 -50 PT 12.7 SEC (12.0-15.0) 02/02/19 09:40 INR 0.99 (0.83-1.16) 02/02/19 09:40 SR/ST, likely reactive to pain and vigorous diuresis yest SBPs labile, consistently 100s overnoc Cr back up to 1.4 from 1.2 CXR -> hypoventilation, bibasilar atelectasis L>R CTOP right sided drains at removal criteria Physical Exam - Physical Exam General Appearance: alert, no apparent distress Respiratory: decreased breath sounds (bases), other (Left pleural CT to pleurovac, Rt pleural and ant med CT y-d to pleurovac, thin serosang drainage, no air leak) Cardiac/Chest: regular rate, rhythm, tachycardia, other (Sternal dressing CDI. Vwires intact.) Abdomen: non-tender, soft Skin: warm/dry Extremities: swelling (trace), other (LLE venotomy CDI) ICD10 Worksheet Patient Problems: Problems Problem Status Onset CKD (chronic kidney disease) Acute Acute blood loss anemia Acute S/P CABG x 2 Acute Coronary artery disease Acute Hypertension Acute Hyperlipidemia Acute Peripheral vascular disease with claudication Acute
[2019-02-09] MEDS ORDERED: NS 1,000 ML IV SCH ×2 (07:45→14:00)
[2019-02-09] MEDS: SENNOSIDES/DOCUSATE SODIUM TAB PO SCH ×2 (08:05→19:58)
[2019-02-09] MEDS: oxyCODONE IR 5 MG TAB PO PRN ×2 (08:06→14:12)
[2019-02-09] MEDS: PANTOPRAZOLE SODIUM 40 MG TAB PO SCH (08:06)
[2019-02-09] MEDS: ASPIRIN 81 MG CHEWABLE TAB PO SCH (08:06)
[2019-02-09] MEDS: MUPIROCIN 2% 22 GM OINT NS SCH (08:08)
[2019-02-09] MEDS ORDERED: AMIODARONE HCL 100 ML IV ONE ×2 (10:49→13:10)
[2019-02-09] MEDS ORDERED: AMIODARONE HCL 200 ML IV ONE (10:49)
[2019-02-09] MEDS ORDERED: AMIODARONE HCL 150 MG/100 ML BAG (1.5 MG/ML) IV ONE (10:53)
[2019-02-09] MEDS: AMIODARONE HCL 100 ML IV PRN ×2 (11:22→11:59)
[2019-02-09] MEDS ORDERED: ALBUMIN 5% 250 ML IV ONE (11:34)
--- NOTE | 2019-02-09 13:12 | GCON ---
[f rep st] CONSULTATION HEMATOLOGY CONSULTATION REFERRING PHYSICIAN: Bashir Rose MD REASON FOR CONSULTATION: Anemia. HISTORY OF PRESENT ILLNESS: A 64-year-old gentleman who I am supposed to see in the office for anemi a, but the patient was admitted to the hospital with coronary artery disease. The patient currently has been having some postoperative atrial fibrillation. His brother is in the room with him. The pa tiegus was not sure why he was coming to see me, but denies any history of low blood problems. Some i nformation was obtained from his brother, and apparently the patient at his mother's not too long ago was not quite being himself. He was more quiet and his memory was not as good. I think it was determined he might have had a stroke around [place] time. Workup of this showed that his mondragon tids were clogged. He was also found to have severe peripheral artery disease. Last week, he underw ent a cardiac catheterization and found to have severe left main coronary stenosis. The stent was no t successful, so he underwent cardiac bypass surgery for a critical left main coronary artery disease , believes he had a 2-vessel bypass. Prior to his hospitalization, he was not having any unexplained weight loss, bleeding, or other constitutional symptoms. He denied any chest pain prior to the hosp italization or now. ALLERGIES: He is allergic to morphine. HOME MEDICATIONS: Included lisinopril with hydrochlorothiazide, Plavix, atorvastatin, and aspirin. CHRONIC ILLNESSES: Include: 1. Severe peripheral artery disease, severe coronary disease with a critical left main stenosis, michael ateral internal carotid artery occlusion, bilateral vertebral disease. 2. Hypertension. PAST SURGICAL HISTORY: Prior to CABG, it was negative. SOCIAL HISTORY: He smoked for about 40 years and quit just in last December. He also did drink fairly heavily, usually beer, anywhere from at least 2 to 6 beers a night. He denied any recent drug use. 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 FAMILY HISTORY: Mother at age 91. Father at age 63. 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 He has 3 brothers, one with singh ry artery disease, but no history of blood disorders or malignancy. HEALTH MAINTENANCE: The patient denies any history of screening colonoscopy. REVIEW OF SYSTEMS: A 10-point review of systems was performed and pertinent positives as per HPI, ot herwise negative. PHYSICAL EXAMINATION: VITAL SIGNS: Temperature 36.8, pulse about 120 to 130, blood pressure 111/62, saturating 94%. GENERAL: He is a little anxious because of the atrial fibrillation, but he is in n o distress. Sclerae are nonicteric. Extraocular muscles are intact. Oral mucosa is unremarkable. LUNGS: Clear. CARDIAC: Irregular and tachy. ABDOMEN: Soft. No palpable hepatosplenomegaly. NOD ES: Reveals no peripheral lymphadenopathy. NEURO: No focal findings at this time. LABORATORY DATA AND X-RAY: CBC on January 30 showed a normal white count, platelet count. Hemoglobin at that time was 12.5 g/dL with normal MCV and RDW. Currently, his white count is up a little bit at 11,000, hemoglobin 9.5, platelet count 129,000. Chemistries also on January 30, BUN and creatinine ar e elevated at 31 and 1.6. His LFTs were normal. TSH was normal. Triglycerides are elevated, but ch olesterol was normal. B12 was normal. PSA was normal. In November, he had hepatitis B, C, and HIV testing performed, which was negative. Syphilis was performed, which was nonreactive. Preop coags w ere normal. Chest x-ray prior to surgery showed possibly a right perihilar nodule. Previous brain MRI showed a l eft frontal lobe subacute infarct. CTA of the head and neck showed complete occlusion of bilateral i nternal carotid arteries and severe atherosclerotic plaque, bilateral carotid bulbs. Moderate athero sclerosis disease, bilateral vertebral arteries, severe atherosclerotic disease, proximal left subcla vian artery. IMPRESSION: 1. Mild anemia. 2. Mild renal insufficiency. 3. Severe coronary and peripheral artery disease. 4. Possible lung nodule. PLAN: I think the mild anemia most likely is due to risk of protein deficiency from mild chronic kid soni disease. I suspect the kidney disease is related to his peripheral vascular disease. I will haylie ck some labs to ensure there are no other abnormalities. He has had a B12 check, but also check his iron studies. I will check erythropoietin and see where he is at, as it should be significantly elev ated with his anemia. I told him that I would want him to focus on recovering from the CABG, includi ng any rehab that is recommended and I could see him back within a month to review the labs. I also strongly encouraged that he stay away from all tobacco products and alcohol going forward. As for the lung nodule, that was indeterminate. That can be followed up outpatient. /[id number]/MODL
[2019-02-09] MEDS ORDERED: AMIODARONE HCL 540 MG in D5W 300 ML IV ONE (17:00)
[2019-02-10] MEDS: traMADol 50 MG TAB PO PRN (05:00)
--- NOTE | 2019-02-10 07:23 | SOAPPROG ---
SOAP Progress Note Assessment/Plan: POD #3: CABGx2 (free SALOMON-LAD, SVG-OM2), EVH LLE Severe 3-vessel CAD with preserved LV systolic fx s/p CABGx3 - Incompletely revascularized RI intramyocardial and not amenable to grafting where visible - further mgmt as per cardiology. - Secondary prevention with ASA. BB as allowed by BP. Statin when eating well. - Last CT to be removed today - FC/AL out Acute post-op blood loss anemia - Stable s/p 2u PRBC and 1u plt Post-op PAF - Conversion to SR with amiodarone - Adjunctive BB as allowed by BP - [id number] 4 - will consider Eliquis if recurrent History of CVA 09/19 with severe carotid artery disease - Permissive HTN - Antithrombotic prophylaxis w Plavix to resume once all chest tubes out Severe right leg PVD w claudication @ 2 blocks - Anticipating fem-pop bypass when recovered from cardiac surgery CKD, stage 2-3, baseline Cr 1.3-1.6 - Stable. Monitor. DVT prophylaxis - SCDs Disposition - PCU - Plan for home Tuesday with OP cardiac rehab Subjective: Feeling better now that HR is controlled. Denies SOB. Objective: Vital Signs Temp Pulse Resp BP Pulse Ox 36.8 C 85 16 109/59 L 98 02/10/19 07:05 02/10/19 07:05 02/10/19 07:05 02/10/19 07:05 02/10/19 07:05 Laboratory Results 02/09/19 05:00 02/10/19 05:00 02/09/19 02/10/19 02/11/19 05:59 05:59 05:59 Intake Total 1225 3860.4 Output Total 1445 1950 Balance -220 1910.4 PT 12.7 SEC (12.0-15.0) 02/02/19 09:40 INR 0.99 (0.83-1.16) 02/02/19 09:40 Physical Exam - Physical Exam General Appearance: WD/WN, alert, no apparent distress EENT: No scleral icterus (R), No scleral icterus (L) Neck: normal inspection Respiratory: No respiratory distress Cardiac/Chest: regular rate, rhythm Abdomen: non-tender, soft, No distended Skin: normal color, warm/dry Extremities: No pedal edema Neuro/Psych: no motor/sensory deficits, alert, normal mood/affect, oriented x 3 ICD10 Worksheet Patient Problems: Problems Problem Status Onset Acute blood loss anemia Acute CKD (chronic kidney disease) Acute Coronary artery disease Acute Hyperlipidemia Acute Hypertension Acute Peripheral vascular disease with claudication Acute Postoperative atrial fibrillation Acute S/P CABG x 2 Acute
[2019-02-10] MEDS: PANTOPRAZOLE SODIUM 40 MG TAB PO SCH (08:25)
[2019-02-10] MEDS: ASPIRIN 81 MG CHEWABLE TAB PO SCH (08:26)
[2019-02-10] MEDS: HYDROCODONE/APAP 5/325 TAB PO PRN (08:26)
[2019-02-10] MEDS: SENNOSIDES/DOCUSATE SODIUM TAB PO SCH ×2 (09:56→20:43)
--- NOTE | 2019-02-10 14:12 | ASMTCMCOM ---
CM Note CM Note Notes: Pt cleared by PT/OT for home with and out pt cardiac rehab. CM available for any changes. DC Plan: Independent Date Signed: 02/10/2019 02:11 PM Electronically Signed By:Nayla Rodríguez RN
[2019-02-10] MEDS: AMIODARONE HCL 200 MG TAB PO SCH (20:43)
--- NOTE | 2019-02-11 07:44 | SOAPPROG ---
SOAP Progress Note Assessment/Plan: POD #4: CABGx2 (free SALOMON-LAD, SVG-OM2), EVH LLE Severe 3-vessel CAD with preserved LV systolic fx s/p CABGx3 - Incompletely revascularized RI intramyocardial and not amenable to grafting where visible - further mgmt as per cardiology. - Secondary prevention with ASA. BB as allowed by BP. Statin when eating well. - CTs/FC/AL out Acute post-op blood loss anemia - Stable s/p 2u PRBC and 1u plt Post-op PAF - Conversion to SR with amiodarone - Adjunctive BB as allowed by BP - [id number] 4 - will consider Eliquis if recurrent History of CVA 09/19 with severe carotid artery disease - Permissive HTN - Antithrombotic prophylaxis w Plavix Severe right leg PVD w claudication @ 2 blocks - Anticipating fem-pop bypass when recovered from cardiac surgery CKD, stage 2-3, baseline Cr 1.3-1.6 - Stable. Monitor. DVT prophylaxis - SCDs Disposition - PCU - Home Tuesday with OP cardiac rehab Subjective: Feeling well. Pain well-controlled. Denies SOB. Ready to head home Tuesday. Objective: Vital Signs Temp Pulse Resp BP Pulse Ox 36.9 C 95 20 96/58 L 96 02/11/19 03:42 02/11/19 03:42 02/11/19 03:42 02/11/19 03:42 02/11/19 03:42 Laboratory Results 02/09/19 05:00 02/10/19 05:00 02/10/19 02/11/19 02/12/19 05:59 05:59 05:59 Intake Total 3860.4 600 Output Total 1950 1075 Balance 1910.4 -475 PT 12.7 SEC (12.0-15.0) 02/02/19 09:40 INR 0.99 (0.83-1.16) 02/02/19 09:40 Physical Exam - Physical Exam General Appearance: WD/WN, alert, no apparent distress EENT: No scleral icterus (R), No scleral icterus (L) Neck: normal inspection Respiratory: No normal breath sounds Cardiac/Chest: regular rate, rhythm Abdomen: non-tender, soft, No distended Skin: normal color, warm/dry Extremities: No pedal edema Neuro/Psych: no motor/sensory deficits, alert, normal mood/affect, oriented x 3 ICD10 Worksheet Patient Problems: Problems Problem Status Onset Acute blood loss anemia Acute CKD (chronic kidney disease) Acute Coronary artery disease Acute Hyperlipidemia Acute Hypertension Acute Peripheral vascular disease with claudication Acute Postoperative atrial fibrillation Acute S/P CABG x 2 Acute
[2019-02-11] MEDS: AMIODARONE HCL 200 MG TAB PO SCH ×2 (08:58→21:14)
[2019-02-11] MEDS: ASPIRIN 81 MG CHEWABLE TAB PO SCH (08:58)
[2019-02-11] MEDS: PANTOPRAZOLE SODIUM 40 MG TAB PO SCH (08:58)
[2019-02-11] MEDS: CLOPIDOGREL BISULFATE 75 MG TAB PO SCH (08:58)
[2019-02-11] MEDS: SENNOSIDES/DOCUSATE SODIUM TAB PO SCH ×2 (08:58→21:16)
[2019-02-11] MEDS: ATORVASTATIN CALCIUM 40 MG TAB PO SCH (21:15)
--- NOTE | 2019-02-12 07:08 | SOAPPROG ---
SOAP Progress Note Assessment/Plan: POD #5: CABGx2 (free SALOMON-LAD, SVG-OM2), EVH LLE Severe 3-vessel CAD with preserved LV systolic fx s/p CABGx3 - Incompletely revascularized RI intramyocardial and not amenable to grafting where visible - further mgmt as per cardiology. - Secondary prevention with ASA. BB as allowed by BP. Statin when eating well. 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 Monitor. DVT prophylaxis - SCDs Disposition - PCU - Home today Subjective: Happy to be heading home. Objective: Vital Signs Temp Pulse Resp BP Pulse Ox 37.1 C 74 17 121/65 H 90 L 02/12/19 04:00 02/12/19 04:00 02/12/19 04:00 02/12/19 04:00 02/12/19 04:00 Laboratory Results 02/09/19 05:00 02/10/19 05:00 02/11/19 02/12/19 02/13/19 05:59 05:59 05:59 Intake Total 600 420 Output Total 1075 700 Balance -475 -280 PT 12.7 SEC (12.0-15.0) 02/02/19 09:40 INR 0.99 (0.83-1.16) 02/02/19 09:40 Physical Exam - Physical Exam General Appearance: WD/WN, alert, no apparent distress EENT: No scleral icterus (R), No scleral icterus (L) Neck: normal inspection Respiratory: No respiratory distress Cardiac/Chest: regular rate, rhythm Abdomen: non-tender, soft, No distended Skin: normal color, warm/dry Extremities: No pedal edema Neuro/Psych: no motor/sensory deficits, alert, normal mood/affect, oriented x 3 ICD10 Worksheet Patient Problems: Problems Problem Status Onset Acute blood loss anemia Acute CKD (chronic kidney disease) Acute Coronary artery disease Acute Hyperlipidemia Acute Hypertension Acute Peripheral vascular disease with claudication Acute Postoperative atrial fibrillation Acute S/P CABG x 2 Acute
[2019-02-12 07:26] VITALS: BP 101/58
--- NOTE | 2019-02-12 08:33 | PDHOMEO2F ---
Home Oxygen Face to Face Home Orders: I certify that a physician or a nurse practitioner or physician's fundraising assistant has had a [id number] encounter with this patient on the date of this order due to the diagnosis listed, which relates to the primary reason the patient requires home oxygen. Alternative treatments have been tried, or considered, and deemed ineffective. It is anticipated that supplemental oxygen will result in improvement with treatment. Home oxygen qualifying diagnosis: CAD, PAD, tobacco abuse SpO2 on room air (%): 86 Frequency of home oxygen needed: continuous Home oxygen liters per minute: 2 Home oxygen delivery device: nasal cannula Concentrator: Yes E-tanks for mobility and back up: Yes If ordering portable O2, is the patient mobile in the home?: Yes I certify that, based on these findings, the home oxygen is medically necessary for this patient for the following length of time. Length of time home oxygen needed: 1 month
--- NOTE | 2019-02-12 08:38 | PDDCSUM ---
Discharge Summary Discharge Summary: ADMISSION DATE: 02/02/19 DISCHARGE DATE: 02/12/19 ADMISSION DIAGNOSES 1. Severe CAD 2. Severe PAD 3. Prior CVA secondary to severe carotid artery disease 4. CKD, stage 2-3 DISCHARGE DIAGNOSES 1. As above 2. Acute post-op blood loss anemia 3. Post-op paroxysmal atrial fibrillation PROCEDURES 1. 02/07/19 ([facility]): CABGx2 (free SALOMON-LAD, SVG-OM2), EVH LLE HPI 64M with severe RLE PAD and planned bypass surgery found to have severe CAD during risk stratification. HOSPITAL COURSE BY PROBLEM LIST 1. Severe 3-vessel CAD with preserved LV systolic fx - s/p CABGx2. Ramus artery not amendable to grafting. Secondary prevention with ASA and statin. BP too low for BB. 2. Severe RLE PAD - for elective bypass once recovered from [facility]. 3. Prior CVA secondary to severe carotid artery disease - stable. Continue Plavix. Allow higher perfusion pressures. 4. CKD, stage 2-3 - stable at baseline. 5. Acute post-op blood loss anemia with coagulopathy - stable s/p 2u PRBC and 1u platelet. 6. Post-op paroxysmal atrial fibrillation - conversion to SR with amiodarone. Adjunctive BB avoided d/t low BP. Thromboprophylaxis deferred d/t short duration of arrhythmia. CONDITION Good DISPOSITION Home, self-care PERTINENT DISCHARGE CLINICAL INFORMATION Vitals: 101/58, 77 SR, 91% on 1 LPM O2 Exam: NAD, SR, No respiratory distress, ND, soft, NTP, BLE w/o edema ACTIVITY Pt was instructed on activity limitations and which problems to call [facility] with. Please see Discharge Plan in chart for specifics. DISCHARGE MEDICATIONS As per Home Medication List in [facility] PENDING STUDIES/LABS 1. CXR prior to surgical follow-up FOLLOW-UP 1. Krishna Elizondo (CT Surgery), 02/20/19, 11:30 AM 2. Aleksander Sargent (Cardiology), to be arranged at surgical f/u 3. Vascular Surgery, to be arranged at surgical f/u
[2019-02-12] MEDS: PANTOPRAZOLE SODIUM 40 MG TAB PO SCH (09:14)
[2019-02-12] MEDS: SENNOSIDES/DOCUSATE SODIUM TAB PO SCH (09:14)
[2019-02-12] MEDS: ASPIRIN 81 MG CHEWABLE TAB PO SCH (09:14)
[2019-02-12] MEDS: AMIODARONE HCL 200 MG TAB PO SCH (09:14)
[2019-02-12] MEDS: CLOPIDOGREL BISULFATE 75 MG TAB PO SCH (09:14)
--- NOTE | 2019-02-14 14:07 | ASMTLACE ---
LACE Length of stay for Answers: 7-13 days current admission Acuity / Level of Answers: Yes Care: Did the patient have an inpatient admission? Comorbidities - select Answers: Coronary Artery Disease all that apply # of Emergency department Answers: 0 visits in the last 6 months Score: 10 Date Signed: 02/14/2019 02:05 PM Electronically Signed By:Peggy Jauregui RN
--- NOTE | 2019-02-14 14:40 | ASDISCHSUM ---
Discharge Information Plan Status:Home with No Needs Medically Cleared to Leave:02/10/2019 Discharge Date:02/12/2019 01:06 PM CM D/C Disposition:Home, Routine, Self-Care ADT D/C Disposition:Home, Routine, Self-Care Projected Discharge Date:02/05/2019 11:00 AM Transportation at D/C: Discharge Delay Reason: Follow-Up Date:02/05/2019 11:00 AM Discharge Slot: Final Diagnosis: Placement Information [facility]erral Type:[facility] Referral ID:[id number] Provider Name: Address 1: Phone Number: Address 2: Fax Number: City: Selection Factors: State: Patient Contact Information Contact Name:YVONNE Relationship: Address:[address] Work Phone: City:[facility] Phone: [facility] Code:[place] [address] Email: Financial Information Financial Class:[employer] Primary Plan Desc:KATHY SOTO [facility] [place] [facility] Primary Plan Number:[id number] Secondary Plan Desc: Secondary Plan Number: Assessment Information LACE LACE Length of stay for Answers: 7-13 days current admission Acuity / Level of Answers: Yes Care: Did the patient have an inpatient admission? Comorbidities - select Answers: Coronary Artery Disease all that apply # of Emergency department Answers: 0 visits in the last 6 months Score: 10 Date Signed: 02/14/2019 02:05 PM Electronically Signed By:Peggy Jauregui RN [facility] Progress Note CM Note CM Note Notes: Reviewed chart, pt admitted to hospital for a cardiac procedure following a positive stress test. Procedure reveals cardiovascular disease which may warrant a CABG, consult ordered. Pt lives at home with his and is self employed. DC Plan: TBD Date Signed: 02/02/2019 03:49 PM Electronically Signed By:Nayla Rodríguez RN [facility] CM Progress Note CM Note CM Note Notes: CM reviewed chart. Pt is consulted to have an open heart. Needs are TBD at this time. CM to follow up after procedure. CM to follow. Plan: TBD Date Signed: 02/05/2019 09:14 AM Electronically Signed By:KEVIN Lucas [facility] CM Progress Note CM Note CM Note Notes: 02/07/2019 Case Management Note Pt requested MDPOA/Living will paperwork. Provided "your right to make healthcare decisions" booklet. Spiritual Care met w/pt and briefly. Notified from [facility] case management that Joanna Chavez is available for any post d/c needs. [phone] x [phone]. Pt to have CABG today at noon. Will transfer to ICU post op. Case Management d/c poc: to be determined Case Management to follow. Date Signed: 02/07/2019 10:34 AM Electronically Signed By:Peggy Jauregui RN [facility] CM Progress Note CM Note CM Note Notes: Patient had a coronary artery bypass graft x2 today. PT/OT ordered. Will await therapies recommendations for d/c planning. CM following. Date Signed: 02/08/2019 04:34 PM Electronically Signed By:Dorothy Ramírez LCSW [facility] CM Progress Note CM Note CM Note Notes: Pt cleared by PT/OT for home with and out pt cardiac rehab. CM available for any changes. DC Plan: Independent Date Signed: 02/10/2019 02:11 PM Electronically Signed By:Nayla Rodríguez RN Intervention Information
== END 2019-02-12 13:06 | disposition home or self-care (01) | DRG 236 ==
LOC: FCATH 09:24 → F2W 11:27 → OBSVTOIN 16:00 → F2N 02-07 11:45 → F2W 02-08 18:09
PROVIDERS: ADMIT Internal Medicine Cardiovascular Disease; ATTEND Thoracic Surgery (Cardiothoracic Vascular Surgery)
PROC: 02100Z9 Bypass Coronary Artery, One Artery from Left Internal Mammary, Open Approach (ICD-10-PCS; principal; 2019-02-07 12:00)
PROC: 06BQ4ZZ Excision of Left Saphenous Vein, Percutaneous Endoscopic Approach (ICD-10-PCS; principal; 2019-02-07 12:00)
PROC: 5A1221Z Performance of Cardiac Output, Continuous (ICD-10-PCS; principal; 2019-02-07 12:00)
PROC: 3E033RZ Introduction of Antiarrhythmic into Peripheral Vein, Percutaneous Approach (ICD-10-PCS; principal; 2019-02-07 12:00)
PROC: 30233N1 Transfusion of Nonautologous Red Blood Cells into Peripheral Vein, Percutaneous Approach (ICD-10-PCS; principal; 2019-02-07 12:00)
PROC: 021009W Bypass Coronary Artery, One Artery from Aorta with Autologous Venous Tissue, Open Approach (ICD-10-PCS; principal; 2019-02-07 12:00)
DX: I25.10 Atherosclerotic heart disease of native coronary artery without angina pectoris (principal); I48.0 Paroxysmal atrial fibrillation; D62 Acute posthemorrhagic anemia; I65.23 Occlusion and stenosis of bilateral carotid arteries; I12.9 Hypertensive chronic kidney disease with stage 1 through stage 4 chronic kidney disease, or unspecified chronic kidney disease; N18.3 Chronic kidney disease, stage 3 (moderate); I73.9 Peripheral vascular disease, unspecified; E78.5 Hyperlipidemia, unspecified; F17.210 Nicotine dependence, cigarettes, uncomplicated; F10.11 Alcohol abuse, in remission; Z86.73 Personal history of transient ischemic attack (TIA), and cerebral infarction without residual deficits
CPT/HCPCS: 82435-PO; 82565-PO; 82668-90; 82947-PO; 83605-ER; 84132-PO; 84295-PO; 84520-PO; 85014-ER; 85520-90; 92610-GN; 97116-GP; 97162-GP; 97166-GO; 97530-GO; 97535-GO; J0153; J0282; J0690; J1250; J1265; J1644; J1815; J2001; J2150; J2250; J2260; J2370; J2405; J2440; J2704; J2720; J2765; J2930; J3010; J3475; J3480; P9016; P9021; P9035; P9041; Q9967

== ENCOUNTER 2019-02-15 21:28 | Emergency (ER) | payer OTHER ==
--- NOTE | 2019-02-15 21:58 | EDPHY ---
General Time Seen by Provider: 02/15/19 21:43 Narrative: CLINICAL IMPRESSION: Wound dehiscence, Subcutaneous seroma left chest wall ASSESSMENT/PLAN: Patient is a 64-year-old male with a history of recent 2 vessel bypass, chest tube removal, hyperlipidemia and hypertension who presents to the emergency department with leakage from 1 of his chest tube sites. Patient is afebrile, not toxic appearing and in no acute distress. His oxygen saturation was 96%, his lungs were clear to auscultation bilaterally. Physical examination reveals wound dehiscence of the left chest tube site; incision site 2 cm with granulation occurring at the wound edge and mildly hyperemic however no evidence of infectious process. There is straw appearing fluid weeping from the wound site. Chest x-ray revealed no evidence of pneumothorax, consolidation or significant pleural effusion. Physical examination is most consistent with likely subcutaneous seroma of the left chest wall; no evidence of abscess or deep space infection. Area was cleansed and dry dressing was placed. He will follow up with his cardiothoracic surgeon tomorrow. Return precautions discussed. DIFFERENTIAL DX: Differential diagnosis includes but not limited to wound dehiscence, subcutaneous seroma, pneumothorax, hemothorax, empyema ED COURSE: 0935: Case discussed with Dr. Brown, he also evaluated this patient. CHIEF COMPLAINT: Leakage from chest tube incision site HPI: Patient is a 64-year-old male with a history of recent 2 vessel bypass, hyperlipidemia and hypertension who presents to the emergency department with leakage from 1 of his chest tube sites. Patient reports that he was admitted 02/02/2019 and discharged 02/14/2019 after he underwent a 2 vessel coronary artery bypass. Since discharge patient reports that he is overall feeling very well. Patient reports today he had a large cough, he subsequently noticed some straw like fluid draining from his left chest tube site. Patient reports his left- sided chest tube was removed on Tuesday without difficulty, no issues with the wound. Patient's applied 4 by 4s and an Catarino bandage however the wound continue to weep straw like fluid throughout the day. They proceeded here for further evaluation. Patient denies any fevers or chills. He denies any chest pain or shortness of breath. He denies any other wound concerns. There has been no redness or thick drainage from this site. He denies any other complaint or concern. PMH: Coronary artery disease, hypertension, hyperlipidemia, carotid artery stenosis, peripheral vascular disease, CVA Pertinent Past Surgical History: Coronary artery Bypass, iliofemoral bypass Family History: Noncontributory Social History: Former smoker REVIEW OF SYSTEMS: All other systems negative Constitutional: No fever, no chills, appetite change. Eyes: No discharge, vision change ENT: No sore throat, congestion, ear pain. Cardiovascular: No chest pain, no palpitations. Respiratory: No cough, no shortness of breath. Gastrointestinal: No abdominal pain, no vomiting, diarrhea. Genitourinary: No hematuria, dysuria, flank pain. Musculoskeletal: No back pain, joint swelling, joint pain, myalgias. Skin: Open wound left chest, leaking fluid. No rashes, color change. Neurological: No headache, dizziness, weakness. PHYSICAL EXAM: General Appearance: Well-appearing, no acute distress and not toxic-appearing. HENT: Normocephalic, atraumatic. Bilateral external ears are normal. Bilateral tympanic membranes are normal with pearly gavin reflex. Nares are clear, mucosa is pink. Oropharynx is clear, uvula is midline. There is no tonsillar enlargement or exudate. The dentition is normal. Eyes: PERRLA, no acute vision change, nystagmus, swelling, discharge, pain or photosensitivity. Conjunctiva pink, no pallor or injection Neck: Supple, nontender, no lymphadenopathy, no midline pain, FROM, no meningismus. Respiratory: There are no retractions, lungs are clear to auscultation bilaterally. Cardiac: Regular rate and rhythm, no murmurs or gallops. Gastrointestinal: Abdomen is soft, nontender, bowel sounds normal, no masses/ hernia, no rigidity, guarding or focal peritoneal findings. Neurological: Alert and oriented x 3, CN 2-12 grossly intact, normal sensation and strength Skin: Warm, dry. There is a well-healing midline sternal incision without erythema, drainage or wound dehiscence. He has 2 healing incisions on the mid chest and right chest without evidence of infection or dehiscence. The left chest tube incision site is open with granulating tissue and mild hyperemia. There is no significant erythema or induration. There is straw-colored serous fluid weeping from the wound site. There is no fluctuance. Musculoskeletal: Extremities are symmetrical, full range of motion, no tenderness, deformity, swelling, or erythema. Psychiatric: Mood and affect are normal, there is no agitation. MEDICAL DECISION MAKING: Patient was seen by myself and Dr. Brown. Diagnosis: Wound dehiscence, subcutaneous seroma. Summary: See Assessment and Plan for summary of ED visit Independent visualization of images, tracing, or specimens: Yes. Decision to obtain medical records or history from someone other than the patient: Yes, Review / Summarize previous medical records: Yes Discussed patient with another provider: Yes, Dr. Brown Patient Progress: Stable, discharge. - Diagnostics Imaging Results: Imaging Impressions Chest X-Ray 02/15/19 21:41 Impression: Postoperative changes with no pneumothorax seen following removal of the left thoracotomy tube.. - History Smoking Status: Former smoker - Objective Vital Signs: Initial Vital Signs Temperature (C) 36.6 C 02/15/19 21:30 Heart Rate 76 02/15/19 21:30 Respiratory Rate 16 02/15/19 21:30 Blood Pressure 163/67 H 02/15/19 21:30 O2 Sat (%) 96 02/15/19 21:30 O2 Delivery Mode Room Air Allergies/Adverse Reactions: morphine Allergy (Verified 02/15/19 21:30) Vomiting Home Medications: Medication Instructions Recorded Aspirin [Aspirin 81mg (*)] 81 mg PO DAILY 02/02/19 Atorvastatin Calcium [Lipitor 40 40 mg PO HS 02/02/19 mg (*)] Clopidogrel Bisulfate [Plavix (*)] 75 mg PO DAILY 02/02/19 Acetaminophen [Tylenol 325mg (*)] 325 - 650 mg PO Q4HRS PRN tab 02/12/19 Amiodarone HCl [Pacerone (*)] 200 mg PO BID #35 tab 02/12/19 Hydrocodone/APAP 5/325 [[place] 1 tab PO Q6H PRN #20 tab 02/12/19 5/325 (*)] Departure - Departure Disposition: Home, Routine, Self-Care Clinical Impression: Wound dehiscence Condition: Good Instructions: Seroma (DC) Additional Instructions: DISCHARGE INSTRUCTIONS FROM YOUR PROVIDER Thank you for visiting our emergency department today. Please keep in mind that discharge from the emergency department does not mean that there is nothing wrong - it simply means that we have not identified an emergency condition that requires further evaluation or treatment in the hospital. Please follow-up with her cardiothoracic surgeon, call tomorrow to be seen. Continue dressing over your open wound, replace as needed. Return to the emergency department for development of chest pain, difficulty breathing, shortness of breath, increased fluid output, redness, purulent drainage or for any other concerning symptom. People present with illnesses and injuries in different ways, and it is always possible that we have missed something. Again, thank you for choosing our emergency department. We hope that you feel better. Referrals: Bashir Rose MD [Primary Care Provider] - As per Instructions
[2019-02-15 22:28] VITALS: BP 150/72
== END 2019-02-15 22:27 | disposition home or self-care (01) ==
DX: T81.31XA Disruption of external operation (surgical) wound, not elsewhere classified, initial encounter (principal); Y82.8 Other medical devices associated with adverse incidents

== ENCOUNTER → 2019-02-20 | Outpatient (CLI) | payer OTHER | LOC: FIMAGING 10:02 | PROVIDERS: ATTEND Thoracic Surgery (Cardiothoracic Vascular Surgery) | DX: Z48.812 Encounter for surgical aftercare following surgery on the circulatory system (principal); Z95.1 Presence of aortocoronary bypass graft ==